=== PATIENT | female | born 1965 | race African-American/Black ===

== ENCOUNTER 2017-08-02 13:57 | Emergency (ER) | payer OTHER ==
[~2017-08-02] VITALS: Ht 170.2 cm; Wt 131.1 kg
[~2017-08-02 13:57] MED LIST: FLEXERIL10 MG PO; NAPROXEN375 MG ORAL; UNOBMED
--- NOTE | 2017-08-02 14:27 | Emergency Room Report ---
History of Present Illness General Chief Complaint: Nausea, Vomiting, and Diarrhea Source: Patient Present Illness HPI The patient is a 52-year-old female brought in by EMS for nausea, vomiting, and diarrhea which all began this morning. She states that she has been eating at a convenience store more than usual. She states that her friend has also been eating the same foods as her and had the same symptoms yesterday. Pain is an 8/ 10 dull ache to the midabdomen. Worse with the vomiting. Does not radiate. Diarrhea is described as brown and watery. She also admits to chills. She denies fevers, hematemesis, melena, hematochezia, back pain, dysuria Allergies: Coded Allergies: No Known Allergies (Unverified , 12/18/12) Patient History Past Medical History: see triage record Pertinent Family History: none Reviewed Nursing Documentation: PMH: Agreed, PSxH: Agreed Review of Systems All Other Systems: negative except mentioned in HPI Physical Exam Vital Signs Date Time Temp Pulse Resp B/P (MAP) Pulse Ox O2 Delivery O2 Flow Rate FiO2 08/02/17 13:50 97.3 85 18 142/83 98 Room Air Sp02 EP Interpretation: reviewed, normal General Appearance: no apparent distress, alert, GCS 15, non-toxic Head: normocephalic, atraumatic Eyes: bilateral eye normal inspection, bilateral eye PERRL ENT: hearing grossly normal, normal pharynx, no angioedema, normal voice Neck: full range of motion, supple/symm/no masses Respiratory: chest non-tender, lungs clear, normal breath sounds, speaking full sentences Cardiovascular #1: regular rate, rhythm, no edema Gastrointestinal: normal bowel sounds, non tender, soft, non-distended, no guarding, no rebound Rectal: deferred Genitourinary: normal inspection, no CVA tenderness Musculoskeletal: back normal, gait/station normal, normal range of motion, non- tender Neurologic: alert, oriented x3, responsive, motor strength/tone normal, sensory intact, speech normal Psychiatric: judgement/insight normal, memory normal, mood/affect normal, no suicidal/homicidal ideation Skin: normal color, no rash, warm/dry, well hydrated Medical Decision Making PA Attestation Dr. Saunders is my supervising physician. Patient management was discussed with my supervising physician Diagnostic Impression: Primary Impression: Gastroenteritis Additional Impression: Trichomoniasis ER Course The patient is a 52-year-old female brought in by EMS for nausea, vomiting, and diarrhea which all began this morning Differential diagnoses considered include but not limited to gastroenteritis, pancreatitis, appendicitis, UTI PE: Vitals WNL. NAD. Abdomen: Normal appearance. Non distended. No ecchymosis. Normal BS. Non TTP. No McBurney point tenderness. No guarding. No CVA tenderness CBC, CMP unremarkable UA shows trich The patient is given IV fluids and Zofran and is feeling better. She is treated for trichomonas and she will also be treated for possible gonorrhea and Chlamydia. The patient is discharged home with a prescription for Zofran and doxycycline. ER precautions are given Laboratory Tests Test 08/02/17 14:20 08/02/17 14:40 Urine Color Pale yellow Urine Appearance Clear Urine pH 5 (4.5-8.0) Urine Specific [place] 1.020 (1.005-1.035) Urine Protein Negative (NEGATIVE) Urine Glucose (UA) Negative (NEGATIVE) Urine Ketones Negative (NEGATIVE) Urine Occult Blood Negative (NEGATIVE) Urine Nitrite Negative (NEGATIVE) Urine Bilirubin Negative (NEGATIVE) Urine Urobilinogen Normal MG/DL (0.0-1.0) Urine Leukocyte Esterase 2+ (NEGATIVE) H Urine RBC 2-4 /HPF (0 - 2) H Urine WBC 5-10 /HPF (0 - 2) H Urine Squamous Epithelial Cells Moderate /LPF (NONE/OCC) H Urine Bacteria Few /HPF (NONE) Urine Trichomonas Few /HPF (NONE) H White Blood Count 9.9 K/UL (4.8-10.8) Red Blood Count 5.08 M/UL (4.20-5.40) Hemoglobin 14.4 G/DL (12.0-16.0) Hematocrit 45.4 % (37.0-47.0) Mean Corpuscular Volume 89 FL (80-99) Mean Corpuscular Hemoglobin 28.3 PG (27.0-31.0) Mean Corpuscular Hemoglobin Concent 31.6 G/DL (32.0-36.0) L Red Cell Distribution Width 12.5 % (11.6-14.8) Platelet Count 324 K/UL (150-450) Mean Platelet Volume 7.3 FL (6.5-10.1) Neutrophils (%) (Auto) 80.6 % (45.0-75.0) H Lymphocytes (%) (Auto) 15.0 % (20.0-45.0) L Monocytes (%) (Auto) 3.1 % (1.0-10.0) Eosinophils (%) (Auto) 0.3 % (0.0-3.0) Basophils (%) (Auto) 1.0 % (0.0-2.0) Prothrombin Time 9.9 SEC (9.30-11.50) Prothrombin Time INR 0.9 (0.9-1.1) PTT 23 SEC (23-33) Sodium Level 142 MMOL/L (136-145) Potassium Level 4.2 MMOL/L (3.5-5.1) Chloride Level 106 MMOL/L (98-107) Carbon Dioxide Level 26 MMOL/L (21-32) Anion Gap 10 mmol/L (5-15) Blood Urea Nitrogen 15 mg/dL (7-18) Creatinine 0.9 MG/DL (0.55-1.30) Estimate Glomerular Filtration Rate > 60 mL/min (>60) Glucose Level 126 MG/DL (74-106) H Calcium Level 9.6 MG/DL (8.5-10.1) Total Bilirubin 0.4 MG/DL (0.2-1.0) Aspartate Amino Transferase (AST) 21 U/L (15-37) Alanine Aminotransferase (ALT) 22 U/L (12-78) Alkaline Phosphatase 94 U/L (46-116) Total Protein 8.9 G/DL (6.4-8.2) H Albumin 4.0 G/DL (3.4-5.0) Globulin 4.9 g/dL Albumin/Globulin Ratio 0.8 (1.0-2.7) L Lipase 188 U/L (73-393) Lab Results Impression CBC, CMP unremarkable UA shows trich Last Vital Signs Date Time Temp Pulse Resp B/P (MAP) Pulse Ox O2 Delivery O2 Flow Rate FiO2 08/02/17 13:50 97.3 85 18 142/83 98 Room Air Status: improved Disposition: HOME, SELF-CARE Condition: Improved Scripts Ondansetron* (ZOFRAN*) 4 Mg Tablet 4 MG ORAL Q6H Y for Nausea & Vomiting, #15 TAB Prov: PENELOPE BENAVIDES P.AQuan 08/02/17 Doxycycline Hyclate* (VIBRAMYCIN*) 100 Mg Capsule 100 MG ORAL EVERY 12 HOURS, #14 CAP 0 Refills Prov: PENELOPE BENAVIDES 08/02/17 PENELOPE BENAVIDES Aug 02, 2017 14:27
[2017-08-02 14:45] LABS: APPEARANCE,URINE CLEAR; KETONES,URINE NEGATIVE (NEGATIVE); LEUKOCYTE ESTERASE ,URINE 2+ (NEGATIVE); NITRITE,URINE NEGATIVE (NEGATIVE); PH,URINE 5 (4.5-8.0); PROTEIN,URINE NEGATIVE (NEGATIVE); UROBILINOGEN,URINE NORMAL MG/DL (0.0-1.0)
[2017-08-02 15:02] LABS: EOSINOPHILS % (AUTO) 0.3 % (0.0-3.0); MEAN CORPUSCULAR HEMOGLOBIN 28.3 PG (27.0-31.0); MEAN CORPUSCULAR HGB CONC 31.6 G/DL (32.0-36.0); MEAN CORPUSCULAR VOLUME 89 FL (80-99); MEAN PLATELET VOLUME 7.3 FL (6.5-10.1); MONOCYTES % (AUTO) 3.1 % (1.0-10.0); NEUTROPHILS % (AUTO) 80.6 % (45.0-75.0); PLATELET COUNT 324 K/UL (150-450); RED BLOOD COUNT 5.08 M/UL (4.20-5.40); RED CELL DISTRIBUTION WIDTH 12.5 % (11.6-14.8); WHITE BLOOD COUNT 9.9 K/UL (4.8-10.8)
[2017-08-02 15:04] LABS: BACTERIA,URINE FEW /HPF; SQUAMOUS EPITHELIAL CELL,UR MODERATE /LPF (NONE/OCC); TRICHOMONAS,URINE FEW /HPF
[2017-08-02 15:08] LABS: ANION GAP 10 mmol/L (5-15); CALCIUM 9.6 MG/DL (8.5-10.1); CARBON DIOXIDE 26 MMOL/L (21-32); CHLORIDE 106 MMOL/L (98-107); CREATININE 0.9 MG/DL (0.55-1.30); GLOMERULAR FILTRATION RATE > 60 mL/min (>60); INR 0.9 (0.9-1.1); POTASSIUM 4.2 MMOL/L (3.5-5.1); PROTHROMBIN TIME 9.9 SEC (9.30-11.50); SODIUM 142 MMOL/L (136-145)
[2017-08-02 15:13] LABS: ALANINE AMINOTRANSFERASE 22 U/L (12-78); ALBUMIN/GLOBULIN RATIO 0.8 (1.0-2.7); ASPARTATE AMINO TRANSFERASE 21 U/L (15-37); LIPASE 188 U/L (73-393); TOTAL PROTEIN 8.9 G/DL (6.4-8.2)
[2017-08-02] MEDS ORDERED: Lidocaine 1% MPF 10mg/ml 5ml INJ ONE (15:15)
[2017-08-02] MEDS ORDERED: metroNIDAZOLE 500mg tab ORAL ONE (15:15)
[2017-08-02] MEDS ORDERED: VIBRAMYCIN100 MG ORAL (16:30)
[2017-08-02] MEDS ORDERED: ZOFRAN4 M3 ORAL (16:30)
[2017-08-02 17:30] VITALS: BP 149/87
== END 2017-08-02 17:30 | disposition home or self-care (01) ==
LOC: EDBD 13:57 → EMR 14:20
DX: K52.9 Noninfective gastroenteritis and colitis, unspecified (principal); A59.9 Trichomoniasis, unspecified
CPT/HCPCS: 36415; 80053; 81003; 83690; 85025; 85610; 85730; 96361; 96372; 96374; 99284; J0696; J2405